=== PATIENT | female | born 1985 | race Asian ===

== ENCOUNTER 2017-05-31 04:18 | Inpatient (IN) | payer SELFPAY ==
[~2017-05-31] VITALS: Ht 168 cm; Wt 59.9 kg
[2017-05-31] MEDS ORDERED: MISOPROSTOL 25 MCG TAB VG PRN (05:15)
[2017-05-31] MEDS ORDERED: PROMETHAZINE 25 MG/ML VIAL IVP PRN (05:15)
[2017-05-31] MEDS ORDERED: NALBUPHINE HYDROCHLORIDE 10 MG/ML VIAL IVP PRN (05:15)
[2017-05-31] MEDS ORDERED: OXYTOCIN 10 UNITS/ML VIAL IM SCH (05:15)
[2017-05-31] MEDS ORDERED: OXYTOCIN 20 UNITS in LACTATED RINGERS 1,000 ML IV SCH (05:15)
[2017-05-31] MEDS: LACTATED RINGERS 1,000 ML IV SCH ×2 (05:54→06:07)
[2017-05-31 06:21] LABS: BASOPHILS # (AUTO) 0.1 K/uL (0.00-0.22); EOSINOPHILS % (AUTO) 0.1 % (0.0-4.0); HEMATOCRIT 39.2 % (36-48); HEMOGLOBIN 13.1 g/dL (12.0-16.0); LYMPHOCYTES % (AUTO) 8.5 % (20.5-51.1); MEAN CORPUSCULAR HEMOGLOBIN 30 pg (27-31); MEAN CORPUSCULAR HGB CONC 33 g/dL (33-37); MEAN CORPUSCULAR VOLUME 89 fL (80-94); MONOCYTES # (AUTO) 0.6 K/uL (0.8-1.0); NEUTROPHILS # (AUTO) 9.7 K/uL (1.8-7.7); NEUTROPHILS % (AUTO) 85.4 % (42.2-75.2); PLATELET COUNT (AUTO) 132 K/uL (140-450); RED BLOOD CELL COUNT(AUTO) 4.39 MIL/uL (4.20-5.40); RED CELL DISTRIBUTION WIDTH 12.6 % (11.6-13.7); WHITE BLOOD COUNT (AUTO) 11.4 K/uL (4.8-10.8)
[2017-05-31] MEDS ORDERED: ROPIVACAINE 0.2%/NS PREMIX 250 ML EPI ONE (06:23)
[2017-05-31 06:35] LABS: ANION GAP 13.1 (8-16); CARBON DIOXIDE 23.7 mmol/L (21-32); CREATININE 0.5 mg/dL (0.6-1.3); POTASSIUM 3.8 mmol/L (3.5-5.1)
[2017-05-31 06:39] LABS: ALBUMIN 2.7 g/dL (3.4-5.0); TOTAL BILIRUBIN 0.3 mg/dL (0.0-1.0)
[2017-05-31] MEDS ORDERED: OXYTOCIN 20 UNITS/LR PREMIX 1,000 ML IV ONE (07:12)
[2017-05-31 07:42] VITALS: BP 138/68
[2017-05-31] MEDS ORDERED: INFLUENZA VIRUS VACCINE QUAD 0.5 ML SYR IMVAC SCH (07:45)
--- NOTE | 2017-05-31 08:31 | NUR ---
PATIENT HAS BEEN SCREENED AND CATEGORIZED LOW NUTRITION RISK. PATIENT WILL BE SEEN WITHIN 7 DAYS OF ADMISSION. 06/07/17 JOSE ELIAS LOVELACE MBA, RD
[2017-05-31] MEDS ORDERED: AMPICILLIN 1,000 MG VIAL ONE (10:48)
[2017-05-31] MEDS ORDERED: OXYTOCIN 10 UNITS/ML VIAL ONE (10:49)
[2017-05-31] MEDS ORDERED: METHYLERGONOVINE 0.2 MG/ML AMP IM PRN (13:25)
[2017-05-31] MEDS ORDERED: OXYTOCIN 10 UNITS/ML VIAL IM PRN (13:25)
[2017-05-31] MEDS ORDERED: TEMAZEPAM 15 MG CAP PO PRN (13:25)
[2017-05-31] MEDS ORDERED: IBUPROFEN 800 MG TAB PO PRN (13:25)
[2017-05-31] MEDS ORDERED: HYDROcodone/APAP 5/325 MG 1 TAB TAB PO PRN (13:25)
[2017-05-31] MEDS ORDERED: BENZOCAINE/MENTHOL 20%-0.5% 60 GM CAN TP PRN (13:25)
[2017-05-31] MEDS ORDERED: oxyCODONE/APAP 5/325 MG 1 TAB TAB PO PRN (13:25)
[2017-05-31] MEDS ORDERED: MEASLES, MUMPS, AND RUBELLA 1 VIAL SQVAC PRN (13:25)
[2017-05-31] MEDS ORDERED: DOCUSATE SOD/SENNA 50/8.6 MG 1 TAB PO SCH (21:00)
[2017-06-01] MEDS ORDERED: INFLUENZA VIRUS VACCINE QUAD 0.5 ML SYR IMVAC SCH (01:10)
[2017-06-01 07:58] LABS: HEMATOCRIT 30.4 % (36-48); HEMOGLOBIN 10.3 g/dL (12.0-16.0)
[2017-06-01 13:16] LABS: RAPID PLASMA REAGIN NON-REACTIVE (Non Reactiv)
== END 2017-06-02 10:55 | disposition home or self-care (01) | DRG 775 ==
LOC: MLD 04:20 → MFCC 17:36
PROVIDERS: ADMIT Obstetrics & Gynecology; ATTEND Obstetrics & Gynecology
PROC: 10E0XZZ Delivery of Products of Conception, External Approach (ICD-10-PCS; principal; 2017-05-31)
PROC: 3E0R3BZ Introduction of Anesthetic Agent into Spinal Canal, Percutaneous Approach (ICD-10-PCS; 2017-05-31)
PROC: 00HU33Z Insertion of Infusion Device into Spinal Canal, Percutaneous Approach (ICD-10-PCS; 2017-05-31)
PROC: 0W8NXZZ Division of Female Perineum, External Approach (ICD-10-PCS; 2017-05-31)
PROC: 3E0234Z Introduction of Serum, Toxoid and Vaccine into Muscle, Percutaneous Approach (ICD-10-PCS; 2017-05-31)
DX: O77.0 Labor and delivery complicated by meconium in amniotic fluid (principal); Z23 Encounter for immunization; Z37.0 Single live birth; Z3A.39 39 weeks gestation of pregnancy
CPT/HCPCS: 36415; 80053; 85018; 85025; 86592; 86886; 86900; 86901; 90658; 90715; J0290; J2590; J2795; J7120

== ENCOUNTER 2017-06-23 11:09 | Inpatient (IN) | payer SELFPAY ==
[~2017-06-23] VITALS: Ht 162.6 cm; Wt 50.8 kg
--- NOTE | 2017-06-23 11:15 | NUR ---
PT W/C ASSISTED TO BED 1.
[2017-06-23 11:17] VITALS: BP 81/27
--- NOTE | 2017-06-23 11:30 | NUR ---
32F BIB FAMILY C/O VAGINAL BLEEDING X THIS MORNING; PT STATES UTILIZED 2 PADS X TODAY, AND STATES BLEEDING WAS "HEAVIER THAN A PERIOD", THIN, RED IN COLOR WITH NO CLOTTS THIS MORNING; PT STATES DOES NOT FEEL BLEEDING AT THIS TIME; PT STATES HAD VAGINAL DELIEVERY ON MAY 31, 2017, WAS ADMITTED ON JUNE 17, 2017 FOR VAGINAL BLEEDING AT [facility] AND 3 UNITS OF BLOOD WAS INFUSED; PT SEEN BY DR. Corrine NATH THIS MORNING AND SENT TO ER. PT C/O DIZZINESS, BUT STATES NO BLURRY VISION OR VISION CHANGES AT THIS TIME. PT AA&OX4, PERRLA, BL LUNG SOUNDS CLEAR, RR EVEN/UNLABORED, SKIN IS PALE, WARM/DRY/INTACT AT THIS TIME; PT STATES NO PAIN AND N/V/D AT THIS TIME; PT PLACED ON MONITOR, RESTING IN BED WITH HOB ELEVATED AND IN LOWEST POSITION; POSITIONED FOR COMFORT; ER MD MADE AWARE OF STATUS. WILL CONTINUE TO MONITOR.
[2017-06-23] MEDS ORDERED: NACL 0.9% 1,000 ML IV ONE ×2 (11:40→11:55)
--- NOTE | 2017-06-23 11:49 | NUR ---
US AT BEDSIDE.
[2017-06-23 12:50] LABS: BASOPHILS # (AUTO) 0.1 K/uL (0.00-0.22); BASOPHILS % (AUTO) 2.1 % (0.0-2.0); EOSINOPHILS % (AUTO) 0.6 % (0.0-4.0); LYMPHOCYTES # (AUTO) 0.7 K/uL (2.5-16.5); LYMPHOCYTES % (AUTO) 12.9 % (20.5-51.1); MEAN CORPUSCULAR HEMOGLOBIN 28 pg (27-31); MEAN CORPUSCULAR HGB CONC 33 g/dL (33-37); MEAN CORPUSCULAR VOLUME 87 fL (80-94); MONOCYTES # (AUTO) 0.4 K/uL (0.8-1.0); MONOCYTES % (AUTO) 8.7 % (1.7-9.3); NEUTROPHILS # (AUTO) 3.9 K/uL (1.8-7.7); NEUTROPHILS % (AUTO) 75.7 % (42.2-75.2); PLATELET COUNT (AUTO) 189 K/uL (140-450); RED BLOOD CELL COUNT(AUTO) 2.43 MIL/uL (4.20-5.40); RED CELL DISTRIBUTION WIDTH 13.5 % (11.6-13.7); WHITE BLOOD COUNT (AUTO) 5.1 K/uL (4.8-10.8)
[2017-06-23 12:51] LABS: ANION GAP 13.9 (8-16); CARBON DIOXIDE 23.1 mmol/L (21-32); CREATININE 0.5 mg/dL (0.6-1.3)
--- NOTE | 2017-06-23 12:52 | NUR ---
PT APPEARS TO BE WORKING COMFORTABLY IN BED; POSITIONED FOR COMFORT; RR EVEN/UNLABORED; FAMILY AT BEDSIDE; WILL CONTINUE TO MONITOR.
[2017-06-23 12:53] LABS: PROTHROMBIN TIME 9.6 secs (10.8-13.4)
[2017-06-23 12:54] LABS: HEMOGLOBIN 6.9 g/dL (12.0-16.0)
[2017-06-23 12:58] LABS: ALBUMIN 2.2 g/dL (3.4-5.0); TOTAL BILIRUBIN 0.2 mg/dL (0.0-1.0)
--- NOTE | 2017-06-23 13:30 | NUR ---
PT APPEARS TO BE RESTING COMFORTABLY IN BED; RR EVEN/UNLABORED; POSITIONED FOR COMFORT; WILL CONTINUE TO MONITOR.
--- NOTE | 2017-06-23 14:45 | NUR ---
CALLED [facility] TO TAKE PT TO FLOOR; NURSE STATES PRIMARY NURSE WENT TO BREAK, AND WILL CALL BACK WHEN WE CAN TAKE PT TO FLOOR; WILL CONTINUE TO MONITOR.
[2017-06-23 15:08] VITALS: BP 90/47
--- NOTE | 2017-06-23 15:08 | NUR ---
Patient will be admitted to care of DR. NATH. Admited to [facility]. Will go to room 214. Belongings list completed. Report to VIANCA STORY AT BEDSIDE.
[2017-06-23] MEDS: AMPICILLIN 2,000 MG in NACL 0.9% 100 ML IV SCH ×2 (15:47→20:23)
[2017-06-23] MEDS ORDERED: AMPICILLIN 2,000 MG VIAL ONE ×2 (15:53→20:04)
[2017-06-24] MEDS ORDERED: AMPICILLIN 2,000 MG VIAL ONE (01:17)
[2017-06-24] MEDS: AMPICILLIN 2,000 MG in NACL 0.9% 100 ML IV SCH (01:25)
[2017-06-24 03:16] LABS: BASOPHILS # (AUTO) 0.1 K/uL (0.00-0.22); EOSINOPHILS % (AUTO) 0.5 % (0.0-4.0); HEMATOCRIT 33.2 % (36-48); HEMOGLOBIN 10.9 g/dL (12.0-16.0); LYMPHOCYTES # (AUTO) 1.2 K/uL (2.5-16.5); LYMPHOCYTES % (AUTO) 14.5 % (20.5-51.1); MEAN CORPUSCULAR HEMOGLOBIN 29 pg (27-31); MEAN CORPUSCULAR HGB CONC 33 g/dL (33-37); MEAN CORPUSCULAR VOLUME 89 fL (80-94); MONOCYTES # (AUTO) 0.3 K/uL (0.8-1.0); MONOCYTES % (AUTO) 4.3 % (1.7-9.3); NEUTROPHILS # (AUTO) 6.4 K/uL (1.8-7.7); NEUTROPHILS % (AUTO) 79.7 % (42.2-75.2); PLATELET COUNT (AUTO) 205 K/uL (140-450); RED BLOOD CELL COUNT(AUTO) 3.76 MIL/uL (4.20-5.40); RED CELL DISTRIBUTION WIDTH 13.6 % (11.6-13.7)
== END 2017-06-24 09:20 | disposition home or self-care (01) | DRG 776 ==
LOC: MED 11:09 → MFCC 14:23
PROVIDERS: ADMIT Obstetrics & Gynecology; ATTEND Obstetrics & Gynecology
PROC: 30233N1 Transfusion of Nonautologous Red Blood Cells into Peripheral Vein, Percutaneous Approach (ICD-10-PCS; principal; 2017-06-23)
DX: O90.81 Anemia of the puerperium (principal); D62 Acute posthemorrhagic anemia
CPT/HCPCS: 36415; 80053; 84484; 84702; 85025; 85610; 85730; 86886; 86900; 86901; 86920; 93005; 96360; 96361; 99291; J0290; J7030; P9016